=== PATIENT | male | born 1985 | race Caucasian/White ===

== ENCOUNTER 2021-08-05 15:41 | Emergency (ER) | payer BC, SELFPAY ==
[2021-08-05 16:10] LABS: UTC Strep Screen (Rapid) Negative (Negative)
[2021-08-05 16:13] VITALS: BP 138/97; PULSE 83; RESP 16; TEMP 36.6; O2SAT 98; BMI 19.0
--- NOTE | 2021-08-05 16:21 | HMH.EDUTC ---
[facility] – [place] Disposition Clinical Impression: Sinusitis Qualifiers: Sinusitis location: unspecified location Chronicity: acute Recurrence: non-recurrent Qualified Code(s): J01.90 - Acute sinusitis, unspecified Disposition: Home, Self-Care Condition on Discharge: Good Instructions: Sinusitis, DI for Sinusitis Additional Instructions: Drink plenty of fluids. Take tylenol or ibuprofen for pain or fever. Take the medications as directed. Follow up with your regular doctor. GO TO THE ER FOR ANY WORSENING SYMPTOMS Prescriptions: methylPREDNISolone [Medrol] 4 mg PO DIRECTED 6 Days #21 packet Transmission Status: Received by [facility] # guaiFENesin [Mucinex 600mg tablet] 1 - 2 tab PO BIDP PRN #30 tab PRN Reason: Congestion Transmission Status: Received by [facility] # Azithromycin [Z-Mike 250mg Tab*] 250 mg PO UD DOSE PK #6 tab Transmission Status: Received by [facility] # Referrals: Provider,Referral, MD [Primary Care Provider] - Time of Disposition: 17:01 Medical Decision Making - Medical Records Medical records reviewed: No: I reviewed the patient's medical records. - Chuck Inquiry Pt receiving controlled substance: No Vital Signs: 08/05/21 16:13 08/05/21 17:04 Temperature 97.9 F 97.9 F Temperature Source Temporal Artery Scan Oral Pulse Rate 83 Pulse Rate [Right Brachial] 83 Respiratory Rate 16 18 Blood Pressure 138/97 H Blood Pressure [Right Arm] 138/97 H Blood Pressure Mean [Right Arm] 110 Blood Pressure Source Automatic Cuff Blood Pressure Source [Right Arm] Automatic Cuff Blood Pressure Position Sitting Blood Pressure Position [Right Arm] Sitting 02 Sat by Pulse Oximetry 98 Oxygen Delivery Method Room Air Room Air - Lab Data Lab results reviewed: Yes: I reviewed the patient's lab results. Lab Results 08/05/21 16:01: Strep Scn Rapid Clinic Negative Orders (Tests/Meds): ORDERS Category Date Time Status Strep Screen Confirmation Stat Micro 08/05/21 16:01 Received Medical Decision Narrative: He refused a covid-19 test or any additional testing for flu or other viruses. [facility] [place] HPI - General Stated complaint: congestion, runny nose, sinus issues, R ear ache Time Seen by Provider: 08/05/21 16:21 Mode of Arrival: Ambulatory Source of Information: Patient Limitations: No Limitations Description of Symptoms (Recalled from Triage Doc. by RN): sinus congestion and pressure,. right ear aching, pressure. tested positive for covid last month HEENT Symptoms (Recalled from RN notes): Yes Resp Symptoms (Recalled from RN notes): No Skin Symptoms (Recalled from RN notes): No MS Symptoms (Recalled from RN notes): No Functional Status (Recalled from RN notes): n/a - History of Present Illness Provider Complaint: He states that for the past 2 days he has had sinus congestion, sinus drainage, scratchy sore throat and he has had chills but no documented fever. He had covid-19 about 4 weeks ago, but he got completely better from that. He refuses a covid-19 test today since he recently got over covid-19. - Related Data Home Medications Medication Instructions Recorded Confirmed cetirizine 10 mg capsule 10 mg PO DAILY 02/11/19 08/05/21 Previous Rx's Medication Instructions Recorded Azithromycin [Z-Mike 250mg Tab*] 250 mg PO UD DOSE PK #6 tab 08/05/21 guaiFENesin [Mucinex 600mg tablet] 1 - 2 tab PO BIDP PRN #30 tab 08/05/21 methylPREDNISolone [Medrol] 4 mg PO DIRECTED 6 Days #21 08/05/21 packet Allergies Allergy/AdvReac Type Severity Reaction Status Date / Time No Known Allergies Allergy Verified 08/05/21 16:18 - Worker's Comp Is this a Worker's Comp case?: No [facility] [place] History - Hepatitis A Screen Drug use history?: No High risk sexual behaviors?: No History of sexually transmitted infection?: No Currently employed?: No Childcare worker?: No Do you have indoor plumbing?: Yes Do you hav
[2021-08-05 17:04] VITALS: BP 138/97; PULSE 83; RESP 18; TEMP 36.6; O2SAT 98
== END 2021-08-05 17:05 | disposition home or self-care (01) ==
PROVIDERS: Emergency Provider Nurse Practitioner Family
DX: J01.90 Acute sinusitis, unspecified (principal)
CPT/HCPCS: 87880; 99202; G0463

== ENCOUNTER 2022-01-07 14:46 | Emergency (ER) | payer BC, SELFPAY ==
--- NOTE | 2022-01-07 15:00 | HMH.EDUTC ---
[facility] [place] Disposition Clinical Impression: Sinusitis Qualifiers: Sinusitis location: unspecified location Chronicity: acute Recurrence: non-recurrent Qualified Code(s): J01.90 - Acute sinusitis, unspecified Disposition: Home, Self-Care Condition on Discharge: Good Instructions: DI for Sinusitis Additional Instructions: Drink plenty of fluids. Take tylenol or ibuprofen for pain or fever. Take the medications as directed. Follow up with your regular doctor. GO TO THE ER FOR ANY WORSENING SYMPTOMS Prescriptions: Amoxicillin/Potassium Clav [Amox-Clav 875-125 mg Tablet] 1 tab PO BID #20 tab Transmission Status: Received by [facility] # Benzonatate [Benzonatate 100mg cap] 100 mg PO TIDP PRN #30 cap PRN Reason: Cough Transmission Status: Received by [facility] # methylPREDNISolone [Medrol] 4 mg PO DIRECTED 6 Days #21 packet Transmission Status: Received by [facility] # Referrals: Isaak Najera APRN [Primary Care Provider] - Time of Disposition: 15:09 Medical Decision Making - Medical Records Medical records reviewed: No: I reviewed the patient's medical records. - Chuck Inquiry Pt receiving controlled substance: No Vital Signs: 01/07/22 15:05 Temperature 98.8 F Temperature Source Oral Pulse Rate [Left] 79 Respiratory Rate 18 Blood Pressure [Right Arm] 139/98 H Blood Pressure Mean [Right Arm] 111 02 Sat by Pulse Oximetry 99 - Lab Data Lab results reviewed: Yes: I reviewed the patient's lab results. Lab Results 01/07/22 15:13: Strep Scn Rapid Clinic Negative Orders (Tests/Meds): ORDERS Category Date Time Status Strep Screen Confirmation Stat Micro 01/07/22 15:13 Received [facility] [place] HPI - General Stated complaint: bilateral ear pain Time Seen by Provider: 01/07/22 15:00 - History of Present Illness Provider Complaint: He states that for the past 1 week he has had sinus congestion, sore throat and bilateral ear pain. He usually gets a sinus infection this time of year from his allergies. He denies any known exposure to covid-19 and refuses a covid-19 test. - Related Data Home Medications Medication Instructions Recorded Confirmed cetirizine 10 mg capsule 10 mg PO DAILY 02/11/19 10/01/21 Previous Rx's Medication Instructions Recorded guaiFENesin [Mucinex 600mg tablet] 1 - 2 tab PO BIDP PRN #30 tab 08/05/21 methylPREDNISolone [Medrol] 4 mg PO DIRECTED 6 Days #21 08/05/21 packet Amoxicillin/Potassium Clav 1 tab PO BID #20 tab 01/07/22 [Amox-Clav 875-125 mg Tablet] Benzonatate [Benzonatate 100mg 100 mg PO TIDP PRN #30 cap 01/07/22 cap] methylPREDNISolone [Medrol] 4 mg PO DIRECTED 6 Days #21 01/07/22 packet Allergies Allergy/AdvReac Type Severity Reaction Status Date / Time No Known Allergies Allergy Verified 10/01/21 15:04 [facility] History - Hepatitis A Screen Attestation statement:: This patient has been screened for Hepatitis A risk factors. I have reviewed the patient's past medical history: Yes Other Surgeries: Yes: No Previous Surgery - Social History Smoking Status: Never smoker Alcohol Intake: never Occupational Status: employed Family Hx:: Cancer, Hypertension, Coronary Artery Disease, Stroke, Hyperlipidemia ROS Obtained: Yes All systems reviewed & no additional complaints - Constitutional Constitutional: Reports as per HPI - Eyes Eyes: Denies eye discharge - ENT Ears, Nose, Mouth, and Throat: Reports as per HPI - Cardiovascular Cardiovascular: Denies chest pain - Gastrointestinal Gastrointestingal: Denies: abdominal pain, cramping, diarrhea, nausea, vomiting Physical Exam - General General appearance: alert, in no apparent distress - Head Head exam: atraumatic, normocephalic, normal inspection - Eye Eye exam: Present: normal appearance, PERRL, EOMI - ENT ENT exam: Present: mucous membranes moist, normal external ear exam - Expan
[2022-01-07 15:05] VITALS: BP 139/98; PULSE 79; RESP 18; TEMP 37.1; O2SAT 99; BMI 19.0
[2022-01-07 15:14] LABS: UTC Strep Screen (Rapid) Negative (Negative)
[2022-01-07 15:24] VITALS: BP 139/98; PULSE 79; RESP 18; TEMP 37.1
== END 2022-01-07 15:28 | disposition home or self-care (01) ==
PROVIDERS: Emergency Provider Nurse Practitioner Family; PCP Nurse Practitioner Family
DX: J01.90 Acute sinusitis, unspecified (principal); H92.03 Otalgia, bilateral; Z79.52 Long term (current) use of systemic steroids; Z82.49 Family history of ischemic heart disease and other diseases of the circulatory system; Z83.438 Family history of other disorder of lipoprotein metabolism and other lipidemia; Z80.9 Family history of malignant neoplasm, unspecified
CPT/HCPCS: 87880; 99213; G0463